=== PATIENT | female | born 1975 | race Caucasian/White ===

== ENCOUNTER 2023-01-18 13:23 | Emergency (ER) | payer BC, SELFPAY ==
--- NOTE | ~2023-01-18 | US_ITS ---
EXAMINATION: US venous doppler [facility] DATE: 01/18/2023 14:44 INDICATION: Left lower limb pain. TECHNIQUE: Grayscale ultrasound images without and with compression and Doppler ultrasound images of the left lower extremity veins were obtained. COMPARISON: None. FINDINGS: The visualized portions of left common femoral vein, profunda (deep) femoral vein, femoral vein, popl iteal vein, peroneal veins, posterior tibial veins, and greater saphenous vein outflow are patent. IMPRESSION: 1. No deep venous thrombosis. Reviewed, dictated and finalized at location [facility]
[2023-01-18 13:50] VITALS: BP 143/64; PULSE 110; RESP 16; TEMP 36.6; O2SAT 100
--- NOTE | 2023-01-18 15:49 | ED_ITS ---
HPI - Extremity Problem General Chief complaint: Extremity Problem,Nontraumatic Stated complaint: left knee pain Time Seen by Provider: 01/18/23 15:21 History of Present Illness HPI Narrative: Patient is a 47-year-old female who presents to the ER with left knee pain and need for DVT rule out. She was seen at an urgent care earlier today and had a negative x-ray of her knee. She has been having pain along the medial aspect of the left knee as well as the anterior joint line. She has noticed some mild swelling. No numbness or tingling. Denies any trauma. No redness fever. Review of Systems Constitutional: Constitutional: Reports no additional constitutional complaints Musculoskeletal: Musculoskeletal: Reports arthralgias, Reports joint swelling and Denies muscle cramps Integumentary/Breasts: Skin/Breast: Reports system reviewed and no additional complaints, except as docu Neurologic: Reports system reviewed and no additional complaints, except as documented PMFSH Past Medical History Medical History (Updated 01/18/23 @ 19:16 by Rodríguez Jane MD) Healthy female adult Surgical History Surgical History (Updated 01/18/23 @ 19:16 by Rodríguez Jane MD) No history of previous surgery Exam Narrative: GENERAL: Well-appearing, well-nourished, and in no acute distress. HEAD: Normocephalic, atraumatic. EXTREMITIES: Left lower extremity exam was some tenderness over the medial david int line of the knee with slight effusion. Also tender over the MCL. Patient has a positive Apley compression test when stressing the medial aspect of the knee. Otherwise normal range of motion. SKIN: Warm, dry, no rash. NEURO: Alert and oriented x3. PSYCH: Normal mood and affect. Course Course Emergency Course: Suspect possible meniscal injury as opposed to DVT. Doppler study negative. Patient has a knee brace. Vital Signs Vital signs: Vital Signs Temperature 97.9 F 01/18/23 13:50 Pulse Rate 110 H 01/18/23 13:50 Respiratory Rate 16 01/18/23 13:50 Blood Pressure 143/64 H 01/18/23 13:50 Pulse Oximetry 100 01/18/23 13:50 Oxygen Delivery Room Air 01/18/23 13:50 Temperature 97.9 F 01/18/23 13:50 Pulse Rate 110 H 01/18/23 13:50 Respiratory Rate 16 01/18/23 13:50 Blood Pressure 143/64 H 01/18/23 13:50 Pulse Oximetry 100 01/18/23 13:50 Oxygen Delivery Room Air 01/18/23 13:50 MDM - Extremity (Nontraumatic) Imaging Data Radiologist's impression: ITS Impressions Venous Doppler Study 01/18/23 14:46 IMPRESSION: 1. No deep venous thrombosis. Discharge Plan Discharge Clinical Impression: Knee pain Patient Disposition: Home, Self-Care Condition: Stable Instructions: P.R.I.C.E. Treatment (ED), Meniscus Tear (ED) Additional Instructions: You may have a meniscal tear causing her pain and swelling. There is no evidence of a blood clot on your ultrasound. Return ER if you suffered no injury, i.e. of chest pain and shortness of breath, or if additional concerns. Follow-up/Referrals: PHYSICIAN NOT ON STAFF,NONSTAFF [Primary Care Provider] - 1 Week Barber Alberto MD [Physician] - 1 Week
== END 2023-01-18 16:15 | disposition home or self-care (01) ==
LOC: ANHED 16:05
PROVIDERS: Emergency Provider Emergency Medicine
DX: M25.562 Pain in left knee (principal)
CPT/HCPCS: 93971; 99284